=== PATIENT | male | born 1965 ===

== ENCOUNTER 2018-01-22 02:25 | Emergency (ER) | payer SELFPAY ==
[2018-01-22 02:45] VITALS: BP 158/81; PULSE 86; RESP 18; TEMP 37.6; O2SAT 94; BMI 33.9
[2018-01-22] MEDS: IBUPROFEN 400 MG TABLET 800 MG PO (03:25)
[2018-01-22 03:26] LABS: Hematocrit 45.4 % (41-53); Hemoglobin 15.2 g/dL (13.5-17.5); Mean Corpuscular HGB Conc 33.4 % (30-36); Mean Corpuscular Hemoglobin 27.5 PG (26-34); Mean Corpuscular Volume 82.3 fL (80-100); Platelet Count 256 X10^3/uL (150-400); Red Blood Cell Count 5.51 X10^6/uL (4.5-5.9); Red Cell Distribution Width 13.3 % (11.6-14.8); White Blood Cell Count 14.1 X10^3/uL (4.5-11.0)
[2018-01-22 03:44] LABS: BUN Creatinine Ratio 19.2 (6-22); Blood Urea Nitrogen 25 mg/dL (9-20); Calcium 9.7 mg/dL (8.4-10.2); Carbon Dioxide 26 mmol/L (22-32); Chloride 103 mmol/L (98-107); Estimated Glomerular Filt Rate 58.4 mL/min (>60); Glucose 110 mg/dL (70-100); HEMOLYSIS < 15 (0-50); Potassium 4.3 mmol/L (3.4-5.1); Sodium 142 mmol/L (137-145)
[2018-01-22 03:59] LABS: Procalcitonin < 0.05 ng/mL (<0.5)
--- NOTE | 2018-01-22 04:40 | ED_ITS ---
HPI - Extremity Injury (Upper) General Chief Complaint: Extremity Injury, Upper Stated Complaint: CANNOT MOVE LEFT HAND Time Seen by Provider: 01/22/18 02:44 History of Present Illness HPI narrative: HPI 52-year-old male with a history of gout (lower extremities) presents with approximately 2 days of gradually worsening left wrist pain that is aching, burning, nonradiating and is worsened by movement like a pressure is virtually identical to prior gouty flares. Patient denies recent trauma to his wrist, fevers, chills. ROS with no recent constitutional symptoms. Exam Gen: Pleasant, nontoxic-appearing, resting comfortably. HEENT: NC, AT, PEERL, EOMI. Resp: Unlabored respirations with a normal work of breathing. Card: Extremities warm and well perfused. GI: Non-distended. : Deferred MSK: Left Upper Extremity - mild warmth and mild diffuse swelling of the left wrist with diffuse tenderness palpation, pain on movement in all modalities left wrist, no erythema, fluctuance, or crepitus, mild swelling of the left wrist, otherwise visually normal, full functional range of motion of the shoulder, elbow, and fingers. No abnormal warmth, tenderness, or other palpable abnormalities of the joints (wrist excluded) or upper arm or forearm; muscle compartments soft.2+ radial pulse, all fingers warm and well perfused.Sensation intact to touch on all fingers. Full functional range of motion of all fingers. Neuro: AO x 3, no facial asymmetry, vision and hearing WNL. Heme/Lymph: Deferred Skin: Normal color with no visible lesions (other than noted above). Psych: Mood and affect appropriate. Labs: WBC 14.1, HB 15.2, sodium 142, potassium 4.3, Pro calcitonin less than 0.05. MDM Previous chart, nursing note, and vitals reviewed. A: 52-year-old male with a history of gout (lower extremities presents) with approximately 2 days of gradually worsening left wrist pain that is aching, burning, nonradiating and is worsened by movement like a pressure is virtually identical to prior gouty flares. DDx & Evaluation: history and exam strongly consistent with gout, no clear identifiable risk factors for septic arthritis, given the low pretest probability the negative Pro calcitonin is appropriate for effective risk stratification, arthrocentesis not presently indicated. Patient treated with ibuprofen 800 mg. Given the patient's creatinine elevation, patient's was switched to to oral steroids and discharged with a 40 mg ?7 day our X and discharged with PCP follow-up recommended. Given the absence of prior trauma imaging was not indicated. Impression: left wrist pain (please reference below for remainder of encounter information) Patient was notified of their elevated blood pressure and recommended to follow up with their primary care physician. As the patient is without evidence of acute end organ dysfunction no further emergent evaluation is indicated as per the [facility] clinical policy. Related Data Home Medications Medication Instructions Recorded Confirmed . (No Home Medications) #0 09/11/10 Previous Rx's Medication Instructions Recorded prednisone 20 mg PO BID 7 Days #14 tab 01/22/18 Allergies Allergy/AdvReac Type Severity Reaction Status Date / Time INGREDIENT: NKDA - NO KNOWN Allergy Unknown Uncoded 01/22/18 02:48 [facility] ALLERGIES [facility] Social History Smoking Status: Current every day smoker Exam Initial Vital Signs Initial Vital Signs: Vital Signs Temperature 99.6 F 01/22/18 02:45 Pulse Rate 86 01/22/18 02:45 Respiratory Rate 18 01/22/18 02:45 Blood Pressure 158/81 H 01/22/18 02:45 Pulse Oximetry 94 01/22/18 02:45 Course Orders Ordered: ED Orders 01/22/18 03:15 Basic Metabolic Panel Stat Complete Blood Count NO DIFF Stat Procalcitonin Stat Discontinued Medications Ibuprofen (Advil) 800 mg PO NOW ONE Stop: 01/22/18 02:58 Last Admin: 01/22/18 03:25 Dose: 800 mg Prednisone (Deltasone) 40 mg PO NOW ONE Stop: 01/22/18 02:58 Vital Signs - 8 hr 01/22/18 02:45 Temperature 99.6 F Pulse Rate 86 Respiratory Rate 18 Blood Pressure 158/81 H Pulse Oximetry 94 MDM - Extremity Injury (Upper) Lab Data Result diagrams: 01/22/18 03:15 01/22/18 03:15 Lab Results 01/22/18 01/22/18 01/22/18 Range/Units 03:15 03:15 03:15 WBC 14.1 H (4.5-11.0) X10^3/uL RBC 5.51 (4.5-5.9) X10^6/uL Hgb 15.2 (13.5-17.5) g/dL Hct 45.4 (41-53) % MCV 82.3 (80-100) fL MCH 27.5 (26-34) PG MCHC 33.4 (30-36) % RDW 13.3 (11.6-14.8) % Plt Count 256 (150-400) X10^3/uL Sodium 142 (137-145) mmol/L Potassium 4.3 (3.4-5.1) mmol/L Chloride 103 (98-107) mmol/L Carbon Dioxide 26 (22-32) mmol/L BUN 25 H (9-20) mg/dL Creatinine 1.30 H (0.66-1.25) mg/dL Estimated GFR 58.4 L (>60) mL/min BUN/Creatinine Ratio 19.2 (6-22) Glucose 110 H (70-100) mg/dL Calcium 9.7 (8.4-10.2) mg/dL Procalcitonin < 0.05 (<0.5) ng/mL Discharge Plan Departure Patient Disposition: Home, Self-Care Clinical Impression: Acute pain of left wrist Instructions: Gout Activity Restrictions/Additional Instructions: You were in seen in the [facility] Emergency Department for evaluation of left wrist pain, you are tentatively thought to have a gout flare. You have been prescribed prednisone for treatment of the inflammation. For pain control you may take acetaminophen as directed below. Please do not use this with ibuprofen or naproxen as will increase your risk of having an ulcer. Please read and follow all of the instructions below. Please follow up with your primary care physician 2-3 days for repeat evaluation and further care. If you have any new symptoms or if you are at all concerned about your health please return immediately to the emergency department. If you do not have a primary care physician, please contact [facility], [facility] at [phone], [facility] at [phone], or [facility] at [phone] to arrange follow up care. If you have health insurance, please also contact your insurer for a list of accepting providers under your policy, you may contact these providers for further health care. Your care today was limited to identifying and treating emergent medical problems only. Many people have subtle differences in their test results that require follow up with their outpatient physician(s) to correctly determine if this represents a normal variation or concerning abnormality with respect to your specific health. The care given to you today was limited to identifying and treating emergent medical problems - you need to request a copy of all of your medical records from today's visit and follow up with your outpatient physician(s) to review both today's visit and your overall health. Prednisone: Prednisone is a steroidal medication prescribed to reduce inflammation. * Many people experience no side effects, while others may experience nausea, loss of appetite, or difficulty sleeping. * If you have diabetes, check your blood glucose more frequently as this will likely increase your blood glucose. * Take this medication by mouth, with food or milk to prevent stomach upset, as directed by your doctor. You may mix the medication in juice or applesauce before taking it. If you are prescribed only one dose per day, take it in the morning before 9 A.M. PREDNISONE SIDE EFFECTS: * Nausea, vomiting, loss of appetite, heartburn, trouble sleeping, increased sweating, or acne may occur. If any of these effects persist or worsen, tell your doctor or pharmacist promptly. * Tell your doctor right away if any of these unlikely but serious side effects occur: muscle pain/cramps, irregular heartbeat, weakness, swelling hands/ankles/ feet, unusual weight gain, signs of infection (such as fever, persistent sore throat), vision problems (such as blurred vision), vomit that looks like coffee grounds, black/bloody stools, severe stomach/abdominal pain, mental/mood changes (such as depression, mood swings, agitation), slow wound healing, thinning skin, bone pain, menstrual period changes, puffy face, seizures, easy bruising/bleeding. * This medication may rarely make your blood sugar level rise, which can cause or worsen diabetes. Tell your doctor right away if you develop symptoms of high blood sugar, such as increased thirst and urination. If you already have diabetes, be sure to check your blood sugars regularly. Your doctor may need to adjust your diabetes medication, exercise program, or diet. * A very serious allergic reaction to this product is rare. However, get medical help right away if you notice any symptoms of a serious allergic reaction, including: rash, itching/swelling (especially of the face/tongue/ throat), severe dizziness, trouble breathing. * This is not a complete list of possible side effects. If you notice other effects not listed above, contact your doctor or pharmacist. * Before using this medication, tell your doctor or pharmacist your medical history, especially of: current/past infections (such as fungal infections, tuberculosis, herpes), heart problems (such as heart failure, recent heart attack), high blood pressure, thyroid problems, kidney disease, liver disease, stomach/intestinal problems (such as ulcer, diverticulitis), bone loss ( osteoporosis), mental/mood disorders (such as psychosis, anxiety, depression), eye diseases (such as cataracts, glaucoma), diabetes, mineral imbalance (such as low level of potassium/calcium in the blood), seizures, blood clots, bleeding problems. * This medicine may cause stomach bleeding. Daily use of alcohol while using this medicine may increase your risk for stomach bleeding. Limit alcoholic beverages. Consult your doctor or pharmacist for more information. * During , this medication should be used only when clearly needed. It may rarely harm an unborn baby. Discuss the risks and benefits with your doctor. Infants born to mothers who have been using this medication for an extended period of time may have hormone problems. Tell your doctor right away if you notice symptoms such as persistent nausea/vomiting, severe diarrhea, or weakness in your . * This medication passes into breast milk but is unlikely to harm a nursing infant. Consult your doctor before breast-feeding. Acetaminophen (Tylenol) * Please take 1,000 mg every 6 hours as needed for pain. * Do no use with alcohol or other acetaminophen containing medications. SIDE EFFECTS: This drug usually has no side effects. If you do not have liver problems, the maximum dose of acetaminophen for adults is 4 grams per day (4000 milligrams). Taking more than the maximum daily amount may cause serious ( possibly fatal) liver damage. Get medical help right away if you have any of the following symptoms of liver damage: persistent nausea/vomiting, extreme tiredness, stomach/abdominal pain, yellowing eyes/skin, dark urine. If you have liver problems, consult your doctor or pharmacist for a safe dosage of this medication. A very serious allergic reaction to this drug is rare. However, get medical help right away if you notice any symptoms of a serious allergic reaction, including: rash, itching/swelling (especially of the face/tongue/ throat), severe dizziness, trouble breathing. This is not a complete list of possible side effects. If you notice other effects not listed above, contact your doctor or pharmacist. High Blood Pressure (Hypertension) When you were in the emergency department you had an abnormally high blood pressure. High blood pressure can be without symptoms. However high blood pressure can lead to many medical problems including kidney disease, strokes, and heart attacks. Your blood pressure may have been elevated due to pain or the stress of being in the emergency department, however half of people with an elevated blood pressure in the emergency department have nursing home problems with high blood pressure. Please see your primary care physician in 2-3 days for a repeat check of your blood pressure. This may help prevent many health serious problems in the future. Please return to the emergency department if you develop any of the following: chest pain, shortness of breath, new or severe headache, changes in vision or hearing, weakness, or if you are otherwise concerned about your health. Prescriptions: New prednisone 20 mg tablet 20 mg PO BID 7 Days Qty: 14 RF: 0 No Action . (No Home Medications) Qty: 0 RF: 0
[2018-01-22 05:00] VITALS: BP 153/80; PULSE 78; RESP 16; TEMP 36.9; O2SAT 98
== END 2018-01-22 05:01 | disposition home or self-care (01) ==
PROVIDERS: Emergency Provider Emergency Medicine
DX: M25.532 Pain in left wrist (principal)
CPT/HCPCS: 36415; 80048; 84145; 85027; 99282; 99283